=== PATIENT | female | born 1930 | race Caucasian/White ===

== ENCOUNTER → 2016-06-07 | Outpatient (CLI) | payer MEDICARE, OTHER ==
[~2016-06-07] MED LIST: COZAAR100 MG PO; CRANBERRY CONC1 EACH PO; FISH OIL 1,0001 EACH PO; FISH OIL300 MG PO; HYDROGEN PEROX473 ML TOP; K-TAB 10MEQ10 MEQ PO; KEPPRA1000 MG PO; LANOXIN (DIGI125 MCG PO; NEOSPORIN1 PKT TOP; NORVASC10 MG PO; PROTONIX40 MG PO; SOTALOL120 MG PO; SYNTHROID75 MCG PO; TYLENOL ARTHRI650 MG PO; VIMPAT100 MG PO; XARELTO15 MG PO; ZOCOR20 MG PO
== END | disposition disaster alternative care site (69) ==
LOC: GBCOE 12:53
DX: Z13.820 Encounter for screening for osteoporosis (principal); Z78.0 Asymptomatic menopausal state; M81.0 Age-related osteoporosis without current pathological fracture